=== PATIENT | female | born 1960 | race American Indian/Alaskan Native ===

== ENCOUNTER 2018-09-24 11:06 | Outpatient (CLI) | payer MEDICARE ==
--- NOTE | 2018-09-24 12:40 | Mammography Report ---
Bilateral mammogram: No previous studies available. CAD study utilized. Findings: Predominance adipose tissue bilaterally. Focal low density asymmetry is noted at in the left breast. No microcalcifications. Normal axilla. Impression: Focal asymmetry in the left breast. Comparison with previous studies is recommended. If previous studies are not available spot compression and sonographic examination is advised.
== END 2018-09-24 11:07 | disposition home or self-care (01) ==
LOC: SPVWC 11:06 → EDSTATUS 11:30
PROVIDERS: ATTEND Internal Medicine
DX: Z12.31 Encounter for screening mammogram for malignant neoplasm of breast (principal)
CPT/HCPCS: 77067

== ENCOUNTER 2019-09-26 10:31 | Outpatient (CLI) | payer MEDICARE ==
--- NOTE | 2019-09-27 10:50 | Mammography Report ---
DIGITAL SCREENING MAMMOGRAM WITH CAD, 09/26/2019 INDICATION: Routine screening mammography. TECHNIQUE: Digital bilateral 2D mammography was obtained in the craniocaudal and mediolateral obliq ue projections. This examination was interpreted with the benefit of Computer-Aided Detection analysi s. COMPARISON: 09/24/2018 FINDINGS: Breast Density: The breasts are heterogeneously dense, which may obscure small masses. There is no evidence of dominant mass, suspicious calcifications or architectural distortion in eithe r breast. IMPRESSION: No mammographic evidence of malignancy. Follow up recommendation: Routine yearly BI-RADS Category 1: Negative. A "normal" or negative report should not discourage follow up or biopsy of a clinically significant f inding. A written summary of these findings will be mailed to the patient. The patient will be entered into a mammography reporting system which will generate a reminder letter for the patient's next appointmen t at the appropriate interval. The [employer] recommends yearly mammograms starting at age 40 and continuing as l baltazar as a woman is in good health. Breast MRI is recommended for women with an approximate 20-25% or greater lifetime risk of breast cancer, including women with a strong family history of breast or ova taylor cancer or who have been treated for Hodgkin's disease. Signer Name: Alex Goldman MD Signed: 09/27/2019 10:45 AM Workstation Name: [id number]
== END 2019-09-26 10:32 | disposition home or self-care (01) ==
LOC: SPVWC 10:31
PROVIDERS: ATTEND Internal Medicine
DX: Z12.31 Encounter for screening mammogram for malignant neoplasm of breast (principal)
CPT/HCPCS: 77067